=== PATIENT | male | born 1995 | race Caucasian/White ===

== ENCOUNTER 2017-01-19 18:07 | Emergency (ER) | payer OTHER ==
[~2017-01-19] VITALS: Ht 175.3 cm; Wt 97.7 kg
[2017-01-19] MEDS ORDERED: IBUPROFEN 800 MG TABLET PO ONE (18:45)
[2017-01-19] MEDS ORDERED: ERYTHROMYCIN 0.5% 3.5 GM TUBE OPHTHALMIC OINTMENT OS ONE (18:45)
[2017-01-19 18:48] VITALS: BP 128/68
== END 2017-01-19 19:43 | disposition home or self-care (01) ==
LOC: EMS 18:10
DX: H57.12 Ocular pain, left eye (principal)
CPT/HCPCS: 99283